=== PATIENT | male | born 1975 | race American Indian/Alaskan Native ===

== ENCOUNTER 2018-11-15 10:01 | Emergency (ER) | payer SELFPAY ==
[2018-11-15 10:11] VITALS: BP 146/88
--- NOTE | 2018-11-15 12:10 | Emergency Department Report ---
ED General Adult HPI - General Chief complaint: Extremity Problem,Nontraumatic Stated complaint: (L) SWOLLEN FOOT Time Seen by Provider: 11/15/18 11:46 Source: patient Mode of arrival: Ambulatory Limitations: No Limitations - History of Present Illness Initial comments: Presents to the emergency department with a chief complaint of left foot pain secondary to a fungal infection. Patient states this has been present for the last couple weeks. 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 and does not air out his feet enough -: Gradual Location: lower extremity Severity scale (0 -10): 2 Quality: burning Consistency: constant Improves with: none Worsens with: none Associated Symptoms: denies other symptoms Treatments Prior to Arrival: none - Related Data Previous Rx's Medication Instructions Recorded Last Taken Type Griseofulvin Ultramicrosize 250 mg PO BID #20 tablet 11/15/18 Unknown Rx [Allegra-Peg] Naproxen [Naprosyn] 500 mg PO BID PRN #20 tablet 11/15/18 Unknown Rx Sulfamethoxazole/Trimethoprim 2 each PO BID #28 tablet 11/15/18 Unknown Rx [Bactrim DS TAB] cephALEXin [Keflex] 500 mg PO Q6HR #40 capsule 11/15/18 Unknown Rx Allergies Allergy/AdvReac Type Severity Reaction Status Date / Time No Known Allergies Allergy Unverified 11/15/18 10:03 ED Review of Systems ROS: Stated complaint: (L) SWOLLEN FOOT Other details as noted in HPI Comment: All other systems reviewed and negative Constitutional: denies: chills, fever Eyes: denies: eye pain, eye discharge, vision change ENT: denies: ear pain, throat pain Respiratory: denies: cough, shortness of breath, wheezing Cardiovascular: denies: chest pain, palpitations Endocrine: no symptoms reported Gastrointestinal: denies: abdominal pain, nausea, diarrhea Genitourinary: denies: urgency, dysuria Musculoskeletal: denies: back pain, joint swelling, arthralgia Skin: denies: rash, lesions Neurological: denies: headache, weakness, paresthesias Psychiatric: denies: anxiety, depression Hematological/Lymphatic: denies: easy bleeding, easy bruising ED Past Medical Hx - Past Medical History Previous Medical History?: No - Surgical History Past Surgical History?: Yes Additional Surgical History: Left Achilles - Social History Smoking Status: Current Every Day Smoker Substance Use Type: None - Medications Home Medications: Home Medications Medication Instructions Recorded Confirmed Last Taken Type Griseofulvin Ultramicrosize 250 mg PO BID #20 tablet 11/15/18 Unknown Rx [Allegra-Peg] Naproxen [Naprosyn] 500 mg PO BID PRN #20 tablet 11/15/18 Unknown Rx Sulfamethoxazole/Trimethoprim 2 each PO BID #28 tablet 11/15/18 Unknown Rx [Bactrim DS TAB] cephALEXin [Keflex] 500 mg PO Q6HR #40 capsule 11/15/18 Unknown Rx ED Physical Exam - General Limitations: No Limitations General appearance: alert, in no apparent distress - Head Head exam: Present: atraumatic, normocephalic - Eye Eye exam: Present: normal appearance, PERRL - ENT ENT exam: Present: mucous membranes moist - Neck Neck exam: Present: normal inspection - Respiratory Respiratory exam: Present: normal lung sounds bilaterally. Absent: respiratory distress - Cardiovascular Cardiovascular Exam: Present: regular rate, normal rhythm. Absent: systolic murmur, diastolic murmur, rubs, gallop - GI/Abdominal GI/Abdominal exam: Present: soft, normal bowel sounds. Absent: distended, tenderness - Rectal Rectal exam: Present: deferred - Extremities Exam Extremities exam: Present: normal inspection - Back Exam Back exam: Present: normal inspection - Neurological Exam Neurological exam: Present: alert, oriented X3 - Psychiatric Psychiatric exam: Present: normal affect, normal mood - Skin Skin exam: Present: warm, dry, intact, normal color, rash, other (patient has fungal infection of the left foot with superimposed cellulitis to the fourth and fifth digits) ED Course Vital Signs 11/15/18 10:09 Temperature 98.3 F Pulse Rate 67 Respiratory 18 Rate Blood Pressure 146/88 [Left] O2 Sat by Pulse 100 Oximetry ED Medical Decision Making - Medical Decision Making discussed plan of care with patient Critical care attestation.: If time is entered above; I have spent that time in minutes in the direct care of this critically ill patient, excluding procedure time. ED Disposition Clinical Impression: Cellulitis, Fungal infection of foot Disposition: DC- TO HOME OR SELFCARE Is pt being admited?: No Does the pt Need Aspirin: No Condition: Stable Instructions: Cellulitis (ED) Additional Instructions: return if worse Prescriptions: Sulfamethoxazole/Trimethoprim [Bactrim DS TAB] 2 each PO BID #28 tablet Griseofulvin Ultramicrosize [Allegra-Peg] 250 mg PO BID #20 tablet cephALEXin [Keflex] 500 mg PO Q6HR #40 capsule Naproxen [Naprosyn] 500 mg PO BID PRN #20 tablet PRN Reason: pain Referrals: PRIMARY CARE,MD [Primary Care Provider] - 3-5 Days [facility] [Provider Group] - 3-5 Days [facility] [Provider Group] - 3-5 Days Time of Disposition: 12:15
== END 2018-11-15 12:29 | disposition home or self-care (01) ==
LOC: ED 10:01
DX: B35.3 Tinea pedis (principal); L03.116 Cellulitis of left lower limb; F17.200 Nicotine dependence, unspecified, uncomplicated; Z98.890 Other specified postprocedural states; Z79.899 Other long term (current) drug therapy
CPT/HCPCS: 99282

== ENCOUNTER 2020-07-20 14:39 | Emergency (ER) | payer SELFPAY ==
[2020-07-20 15:05] VITALS: BP 136/91
--- NOTE | 2020-07-20 17:01 | Emergency Department Report ---
ED Rash HPI - HPI Chief Complaint: Skin Rash Stated Complaint: BUG BITE Time Seen by Provider: 07/20/20 15:55 Duration: 1 week Location: Head Suspected Cause: Unknown Rash Symptoms: Yes Itching, No Facial Swelling, No Tongue/Oral Swelling, No Breathing Difficulties, No Choking Sensation, No Wheezing/Dyspnea, No Peeling, No Blistering, No Fever, No Lightheaded, No Malaise, No Myalgias Severity: mild Other History: This is a 45-year-old male nontoxic, well nourished in appearance, no acute signs of distress presents to the ED with c/o of scaly rash with itching to scalp area x 1 week. Stated has some symptoms to left upper mustache as well. Patient stated otherwise denies any other complaints or symptoms. Patient states it is itching and redness with some hair loss. Patient denies any drooling, hoarseness or facial swelling. Patient denies any trauma. Patient denies any fever, chills, nausea, vomiting, chest pain, shortness of breath, headache, stiff neck, numbness or tingling. Patient denies any allergies or significant past medical history ED Review of Systems ROS: Stated complaint: BUG BITE Other details as noted in HPI Comment: All other systems reviewed and negative Constitutional: denies: chills, fever Eyes: denies: eye pain, eye discharge, vision change ENT: denies: ear pain, throat pain Respiratory: denies: cough, shortness of breath, wheezing Cardiovascular: denies: chest pain, palpitations Endocrine: no symptoms reported Gastrointestinal: denies: abdominal pain, nausea, diarrhea Genitourinary: denies: urgency, dysuria Musculoskeletal: denies: back pain, joint swelling, arthralgia Skin: rash. denies: lesions, change in color, change in hair/nails, pruritus Neurological: denies: headache, weakness, paresthesias Psychiatric: denies: anxiety, depression Hematological/Lymphatic: denies: easy bleeding, easy bruising ED Past Medical Hx - Past Medical History Previous Medical History?: No - Surgical History Past Surgical History?: Yes Additional Surgical History: Left Achilles - Social History Smoking Status: Current Every Day Smoker Substance Use Type: Alcohol - Medications Home Medications: Home Medications Medication Instructions Recorded Confirmed Last Taken Type Clotrimazole 1% [Lotrimin] 1 applic TP BID #20 tube 11/15/18 Unknown Rx Griseofulvin Ultramicrosize 250 mg PO BID #20 tablet 11/15/18 Unknown Rx [Allegra-Peg] Naproxen [Naprosyn] 500 mg PO BID PRN #20 tablet 11/15/18 Unknown Rx Sulfamethoxazole/Trimethoprim 2 each PO BID #28 tablet 11/15/18 Unknown Rx [Bactrim DS TAB] cephALEXin [Keflex] 500 mg PO Q6HR #40 capsule 11/15/18 Unknown Rx Sulfamethoxazole/Trimethoprim 1 each PO BID #14 tablet 07/20/20 Unknown Rx [Bactrim DS TAB] Terbinafine (Nf) [LamiSIL] 250 mg PO QDAY #28 tablet 07/20/20 Unknown Rx Rash Exam - Exam General: Vital signs noted. No distress. Alert and acting appropriately. HEENT: No Periorbital Edema, No Conjuctival Injection, No Chemosis, No Perioral Edema, No Tongue Edema, No Uvular Edema, No Compromised Airway, No Drooling Lungs: Yes Good Air Exchange (Normal Breath Sounds), No Wheezes, No Ronchi, No Stridor, No Cough, No Labored Respirations, No Retractions, No Use of Accessory Muscles, No Other Abnormal Lung Sounds Heart: Yes Regular, No Murmur Skin: Yes Other (scaly oval-shaped rash with some hair loss to scalp area and left upper mustache with some cellulitis to the mustache area.), No Urticarial Rash, No Maculopapular Rash, No Morbilliform rash, No Bulla(e), No Excoriations, No Weeping, No Tenderness, No Erythema, No Edema, No Encrustations Other: Positive: Abdomen Normal, Neurologic Normal, Musculoskeletal Normal ED Course Vital Signs 07/20/20 15:02 Temperature 98.9 F Pulse Rate 61 Respiratory 16 Rate Blood Pressure 136/91 O2 Sat by Pulse 100 Oximetry - Reevaluation(s) Reevaluation #1: 07/20/20 17:03 Patient is speaking in full sentences with no signs of distress noted. ED Medical Decision Making - Medical Decision Making 45-year-old male that presents with tinea capitis and cellulitis. Patient is stable and was examined by me. Patient be discharged with Terbinafine And Bactrim. Patient was instructed to follow-up with a primary care doctor in 3-5 days or if symptoms worsen and continue return to emergency room as soon as possible. At time of discharge, the patient does not seem toxic or ill in appearance. No acute signs of distress noted. Patient agrees to discharge treatment plan of care. No further questions noted by the patient. Critical care attestation.: If time is entered above; I have spent that time in minutes in the direct care of this critically ill patient, excluding procedure time. ED Disposition Clinical Impression: Tinea capitis Cellulitis Qualifiers: Site of cellulitis: head Qualified Code(s): L03.811 - Cellulitis of head [any part, except face] Disposition: TO HOME OR SELFCARE Is pt being admited?: No Does the pt Need Aspirin: No Condition: Stable Additional Instructions: Follow-up with a primary care doctor in 3-5 days or if symptoms worsen and continue return to emergency room as soon as possible. Prescriptions: Sulfamethoxazole/Trimethoprim [Bactrim DS TAB] 1 each PO BID #14 tablet Terbinafine (Nf) [LamiSIL] 250 mg PO QDAY #28 tablet Referrals: PRIMARY,CARE [Other] - 3-5 Days INOCENTE ESPINO MD [Staff Physician] - 3-5 Days Forms: Work/School Release Form(ED) Time of Disposition: 17:10
== END 2020-07-20 17:34 | disposition home or self-care (01) ==
LOC: ED 14:39
DX: B35.0 Tinea barbae and tinea capitis (principal); L03.90 Cellulitis, unspecified; F17.200 Nicotine dependence, unspecified, uncomplicated; Z98.890 Other specified postprocedural states; Z79.899 Other long term (current) drug therapy
CPT/HCPCS: 99281

== ENCOUNTER 2020-09-01 09:03 | Emergency (ER) | payer SELFPAY ==
--- NOTE | 2020-09-01 10:57 | Emergency Department Report ---
- General Chief complaint: Skin Rash Stated complaint: HEAD RASH Time Seen by Provider: 09/01/20 09:22 Source: patient Mode of arrival: Ambulatory Limitations: No Limitations - History of Present Illness Initial comments: This is a 45-year-old male nontoxic, well nourished in appearance, no acute signs of distress presents to the ED with c/o of redness and pain to chin honey colored crusting with some clear drainage. Patient said this happened several days ago. Patient denies any hair loss. Patient denies any pus or rednes. Patient denies any fever, chills, nausea, vomiting, chest pain, shortness of breath, headache or stiff neck. Patient denies any allergies or significant past medical history. -: days(s) Location: face Severity scale (0 -10): 0 Consistency: constant Improves with: none Worsens with: none Context: none Associated symptoms: denies other symptoms - Related Data Previous Rx's Medication Instructions Recorded Last Taken Type Clotrimazole 1% [Lotrimin] 1 applic TP BID #20 tube 11/15/18 Unknown Rx Griseofulvin Ultramicrosize 250 mg PO BID #20 tablet 11/15/18 Unknown Rx [Allegra-Peg] Naproxen [Naprosyn] 500 mg PO BID PRN #20 tablet 11/15/18 Unknown Rx Sulfamethoxazole/Trimethoprim 2 each PO BID #28 tablet 11/15/18 Unknown Rx [Bactrim DS TAB] cephALEXin [Keflex] 500 mg PO Q6HR #40 capsule 11/15/18 Unknown Rx Sulfamethoxazole/Trimethoprim 1 each PO BID #14 tablet 07/20/20 Unknown Rx [Bactrim DS TAB] Terbinafine (Nf) [LamiSIL] 250 mg PO QDAY #28 tablet 07/20/20 Unknown Rx cephALEXin [Keflex] 500 mg PO Q8HR #21 cap 09/01/20 Unknown Rx Allergies Allergy/AdvReac Type Severity Reaction Status Date / Time No Known Allergies Allergy Verified 09/01/20 09:09 Abscess Boil HPI - HPI Chief Complaint: Skin Rash Stated Complaint: HEAD RASH Time Seen by Provider: 09/01/20 09:22 Home Medications: Previous Rx's Medication Instructions Recorded Last Taken Type Clotrimazole 1% [Lotrimin] 1 applic TP BID #20 tube 11/15/18 Unknown Rx Griseofulvin Ultramicrosize 250 mg PO BID #20 tablet 11/15/18 Unknown Rx [Allegra-Peg] Naproxen [Naprosyn] 500 mg PO BID PRN #20 tablet 11/15/18 Unknown Rx Sulfamethoxazole/Trimethoprim 2 each PO BID #28 tablet 11/15/18 Unknown Rx [Bactrim DS TAB] cephALEXin [Keflex] 500 mg PO Q6HR #40 capsule 11/15/18 Unknown Rx Sulfamethoxazole/Trimethoprim 1 each PO BID #14 tablet 07/20/20 Unknown Rx [Bactrim DS TAB] Terbinafine (Nf) [LamiSIL] 250 mg PO QDAY #28 tablet 07/20/20 Unknown Rx cephALEXin [Keflex] 500 mg PO Q8HR #21 cap 09/01/20 Unknown Rx Allergies/Adverse Reactions: Allergies Allergy/AdvReac Type Severity Reaction Status Date / Time No Known Allergies Allergy Verified 09/01/20 09:09 ED Review of Systems ROS: Stated complaint: HEAD RASH Other details as noted in HPI Comment: All other systems reviewed and negative Constitutional: denies: chills, fever Eyes: denies: eye pain, eye discharge, vision change ENT: denies: ear pain, throat pain Respiratory: denies: cough, shortness of breath, wheezing Cardiovascular: denies: chest pain, palpitations Endocrine: no symptoms reported Gastrointestinal: denies: abdominal pain, nausea, diarrhea Genitourinary: denies: urgency, dysuria Musculoskeletal: denies: back pain, joint swelling, arthralgia Skin: denies: rash, lesions Neurological: denies: headache, weakness, paresthesias Psychiatric: denies: anxiety, depression Hematological/Lymphatic: denies: easy bleeding, easy bruising ED Past Medical Hx - Surgical History Additional Surgical History: Left Achilles - Social History Smoking Status: Current Every Day Smoker Substance Use Type: None - Medications Home Medications: Home Medications Medication Instructions Recorded Confirmed Last Taken Type Clotrimazole 1% [Lotrimin] 1 applic TP BID #20 tube 11/15/18 Unknown Rx Griseofulvin Ultramicrosize 250 mg PO BID #20 tablet 11/15/18 Unknown Rx [Allegra-Peg] Naproxen [Naprosyn] 500 mg PO BID PRN #20 tablet 11/15/18 Unknown Rx Sulfamethoxazole/Trimethoprim 2 each PO BID #28 tablet 11/15/18 Unknown Rx [Bactrim DS TAB] cephALEXin [Keflex] 500 mg PO Q6HR #40 capsule 11/15/18 Unknown Rx Sulfamethoxazole/Trimethoprim 1 each PO BID #14 tablet 07/20/20 Unknown Rx [Bactrim DS TAB] Terbinafine (Nf) [LamiSIL] 250 mg PO QDAY #28 tablet 07/20/20 Unknown Rx cephALEXin [Keflex] 500 mg PO Q8HR #21 cap 09/01/20 Unknown Rx ED Physical Exam - General Limitations: No Limitations General appearance: alert, in no apparent distress - Head Head exam: Present: atraumatic, normocephalic - Expanded Head Exam Expanded 1 - Honey colored crusting to this area some white clear drainage. - Eye Eye exam: Present: normal appearance - Neck Neck exam: Present: normal inspection, full ROM. Absent: lymphadenopathy - Respiratory Respiratory exam: Absent: respiratory distress - Cardiovascular Cardiovascular Exam: Present: regular rate - Extremities Exam Extremities exam: Present: full ROM - Back Exam Back exam: Present: full ROM - Neurological Exam Neurological exam: Present: alert, oriented X3, normal gait - Psychiatric Psychiatric exam: Present: normal affect, normal mood - Skin Skin exam: Present: warm, dry, intact, normal color. Absent: rash ED Course Vital Signs 09/01/20 09:09 Temperature 98.4 F Pulse Rate 84 Respiratory 18 Rate Blood Pressure 108/68 O2 Sat by Pulse 99 Oximetry - Reevaluation(s) Reevaluation #1: 09/01/20 10:57 Patient is speaking in full sentences with no signs of distress noted. ED Medical Decision Making - Medical Decision Making This is a 45-year-old male that presents with impetigo. Patient is stable and was examined by me. There is no induration, fluctuance. No signs of abscess formation or cellulitis noted on exam. Patient be discharged with Keflex. Patient was referred to Follow-up with a primary care doctor in 3-5 days or if symptoms worsen and continue return to emergency room as soon as possible. At time of discharge, the patient does not seem toxic or ill in appearance. No acute signs of distress noted. Patient agrees to discharge treatment plan of care. No further questions noted by the patient. Critical care attestation.: If time is entered above; I have spent that time in minutes in the direct care of this critically ill patient, excluding procedure time. ED Disposition Clinical Impression: Impetigo Disposition: DC-01 TO HOME OR SELFCARE Is pt being admited?: No Does the pt Need Aspirin: No Condition: Stable Instructions: Impetigo, Adult Additional Instructions: Follow-up with a primary care doctor in 3-5 days or if symptoms worsen and continue return to emergency room as soon as possible. Prescriptions: cephALEXin [Keflex] 500 mg PO Q8HR #21 cap Referrals: BARBARA CHRISTENSEN MD [Primary Care Provider] - 3-5 Days INOCENTE ESPINO MD [Staff Physician] - 3-5 Days Forms: Work/School Release Form(ED) Time of Disposition: 10:59
== END 2020-09-01 11:09 | disposition home or self-care (01) ==
LOC: ED 09:03
CPT/HCPCS: 99281